=== PATIENT | female | born 1985 | race Caucasian/White ===

== ENCOUNTER 2020-04-18 00:12 | Emergency (ER) | payer BC, MEDICAID, OTHER ==
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
[2020-04-18 00:37] VITALS: BP 132/84; PULSE 87
--- NOTE | 2020-04-18 10:35 | CR ---
[id number] RAD/RAD Elbow Left 2V EXAM: 2 VIEWS LEFT ELBOW. INDICATION: FALL. PAIN LIMITED RANGE OF MOTION. COMPARISON: None. DISCUSSION: No fracture, dislocation or other osseous abnormality. IMPRESSION: 1. No acute osseous abnormalities. Jose Hackett DO 04/18/20 1033 Thank you for allowing us to participate in the care of your patient.
== END 2020-04-18 00:59 | disposition home or self-care (01) ==
LOC: KA.ED 00:12
DX: M25.522 Pain in left elbow (principal); Z88.1 Allergy status to other antibiotic agents; Z88.0 Allergy status to penicillin; W01.10XA Fall on same level from slipping, tripping and stumbling with subsequent striking against unspecified object, initial encounter
CPT/HCPCS: 73070-LT; 99283